=== PATIENT | female | born 1985 | race Caucasian/White ===

== ENCOUNTER 2016-09-05 14:43 | Observation (INO) | payer OTHER ==
[2016-09-05 15:54] LABS: Mean Corpuscular Hemoglobin 26.8 pg (27.0-35.0); Mean Corpuscular Volume 82.2 fL (81-100)
[2016-09-05] MEDS ORDERED: Lactated Ringer's 1,000 ML IV SCH (15:55)
[2016-09-05] MEDS ORDERED: NIFEdipine 10 mg Capsule PO ONE (17:45)
--- NOTE | 2016-09-05 18:13 | PCM.HPOB ---
Subjective Date of Service: Sep 05, 2016 Referring Provider: Admitting Physician: Sal Huffman MD Primary Care Physician: Rudolph Levy DO Attending Physician: Sal Huffman MD Chief Complaint Here for NST History of Present History of Present Illness 31Y/O at 34w6d ALEKS 10/11/2016 complicated with: 1. Twins gestation, di/di. 2. Gestational HTN. 3. Gestational DM on Glyburide. 4. Obesity, BMI48 5. Desires Sterilization consent signed 07/17/2016. 6. Transfer of care to [facility] from [place] at 24 weeks. Patient care is being co-managed between [facility] at [facility] with plan for delivery at the [facility]. NST twice weekly started at 32weeks. Last NST at [place] 3 days ago. Patient presented today for scheduled NST. Heart tones reactive but maternal BP as high as 175 /99 repeat BP 156/84. Except for localized "sinus headache" X2 days pain localized over cheeks, pt denies headache, change in vision, N/V or epigastric pain. Lower extremities edema X2 Patient was started on labetalol but self discontinued after one dose secondary to feeling agitated, patient took labetalol along with glyburide dose, and denies that she had skipped any meal that night or possible hypoglycemia as reason for the agitation. Past Medical History Obstetrical History: G1 2013 SAB at 4 weeks. G2 2013 SAB at 7 weeks. G3 2013 at 38 weeks 0 days, 6lb7oz., IOL for gestational HTN. G4 2015 SAB at 6 weeks. Gynecologic History: Menarche at age 10. LMP 12/28/15. Medical History: Denies Hx of HTN before or in between . Surgical History: ACL repair Right ankle surgery X3 Hx Tobacco Use: No Hx Alcohol Use: No Hx Substance Use: No Past Family History Family History HTN: MGM and Mother. Allergy Coded Allergies: codeine (Verified Adverse Reaction, Mild, hives and skin rash, 09/05/16) Uncoded Allergies: Acetaminophen-rash (Adverse Reaction, Intermediate, rash, 09/05/16) Hydrocodone Bitartrate (Adverse Reaction, Mild, Rash, 09/05/16) Labetolol (Adverse Reaction, Mild, body shakes, 09/05/16) Exam Vital Signs BP as high as 175/99 last BP 165/80 . BP from the right arm 130's/75's. HR 90 RR 16 T 36.8 Exam Both Twin A and B 140 moderate variability , positive accelerations and no decelerations. Interrupted strip. Constitutional: Well-developed, Well-nourished, Obese HEENT: Atraumatic, PERRLA Lungs: Clear to Auscultation Heart: Regular Rate/Rhythm, Normal S1, Normal S2 Abdomen: Gravid Extremities: Pulses Palpable x4, Edema (+1 B/L ) Neurological/Psychiatric: Alert, Oriented X3, Cooperative Neuro: Reflexes 2+ Labs/Diagnostics Lab/Diagnostic Information Laboratory Tests 72 Hours Test 09/05/16 15:29 09/05/16 15:40 Urine Random Creatinine 31mg/dL (16-392) Urine Random Total Protein 4mg/dL (0-15) Urine Protein/Creatinine Ratio 0.13 White Blood Count 10.2th/mm3 (3.8-10.1) Red Blood Count 4.11mil/mm3 (3.90-5.20) Hemoglobin 11.0g/dL (12.0-15.6) Hematocrit 33.8% (35.0-46.0) Mean Corpuscular Volume 82.2fL (81-100) Mean Corpuscular Hemoglobin 26.8pg (27.0-35.0) Mean Corpuscular Hemoglobin Concent 32.5% (32.0-37.0) Red Cell Distribution Width 14.1% (12.3-15.4) Platelet Count 225bil/L (150-400) Hematology Comments Blood Urea Nitrogen 8mg/dL (6-20) Creatinine 0.49mg/dL (0.57-1.00) Uric Acid 4.5mg/dL (2.6-7.2) Aspartate Amino Transf (AST/SGOT) 18U/L (0-50) Alanine Aminotransferase (ALT/SGPT) 11U/L (0-32) Maternal Blood Type: O (positive ) Additional Information Rubella immune RPR NR Hep BAg Negative HIV negative TSH 1.2 (01/17/16) Hgb A1c 5.4%(01/17/16) 1 hour DM screen 138 (06/18/16) ? OB Intrapartum Assessment/Plan Assessment 31Y/O at 34w6d ALEKS 10/11/2016 1. Di/di Twins gestation, planing delivery at [facility]. 2. Worsening Gestational HTN, labs WNL. asymptomatic beside Edema, facial headache and Lower back pain. 3. Gestational DM on Glyburide. 4. Obesity, BMI48 5. Desires Sterilization consent signed 07/17/2016. 6. Transfer of care to [facility] from [place] at 24 weeks. Pain Management: Patient was discussed with by , Transfer of care to [facility] was accepted by . Patient received one dose procardia XL 30 mg. 975 mg Tylenol for back pain. Sofia Valerio MD Sep 05, 2016 18:13
--- NOTE | 2016-09-18 12:11 | PCM.DC.OB ---
Obstetrical Discharge Summary Date of Service Sep 18, 2016 Date of hospital admission Sep 05, 2016 at 15:20 Date of Discharge: Sep 05, 2016 Providers Admitting Physician: Sal Huffman MD Primary Care Physician: Rudolph Levy DO Attending Physician: Sal Huffman MD Diagnosis at Time of Discharge Discharge Diagnosis: 1. Di/di Twins gestation, planing delivery at [facility]. 2. Gestational HTN, labs WNL. asymptomatic beside Edema, facial headache and Lower back pain. 3. Gestational DM on Glyburide. Discharge Condition: Guarded. Disposition: Transfer of care to [facility] Problems: Brief History and Physical: 31Y/O at 34w6d ALEKS 10/11/2016 complicated with: 1. Twins gestation, di/di. 2. Worsening Gestational HTN, labs WNL. asymptomatic beside Edema, facial headache and Lower back pain. 3. Gestational DM on Glyburide. 4. Obesity, BMI48 5. Desires Sterilization consent signed 07/17/2016. 6. Transfer of care to [facility] from [place] at 24 weeks. Patient care is being co-managed between [facility] at [facility] with plan for delivery at the [facility]. NST twice weekly started at 32weeks. Last NST at [place] 3 days ago. Patient presented today for scheduled NST. Heart tones reactive but maternal BP as high as 175 /99 repeat BP 156/84. Except for localized "sinus headache" X2 days pain localized over cheeks, pt denies headache, change in vision, N/V or epigastric pain. Lower extremities edema X2 Patient was started on labetalol but self discontinued after one dose secondary to feeling agitated, patient took labetalol along with glyburide dose, and denies that she had skipped any meal that night or possible hypoglycemia as reason for the agitation. Patient was discussed with by , Transfer of care to [facility] was accepted by . Patient received one dose procardia XL 30 mg. 975 mg Tylenol for back pain. Past Medical History Obstetrical History: G1 2013 SAB at 4 weeks. G2 2013 SAB at 7 weeks. G3 2013 at 38 weeks 0 days, 6lb7oz., IOL for gestational HTN. G4 2015 SAB at 6 weeks. Gynecologic History: Menarche at age 10. LMP 7/15/16. Medical History: Denies Hx of HTN before or in between . Surgical History: ACL repair Right ankle surgery X3 Hx Tobacco Use: No Hx Alcohol Use: No Hx Substance Use: No Past Family History Family History HTN: MGM and Mother. Allergy Coded Allergies: codeine (Verified Adverse Reaction, Mild, hives and skin rash, 09/05/16) Uncoded Allergies: Acetaminophen-rash (Adverse Reaction, Intermediate, rash, 09/05/16) Hydrocodone Bitartrate (Adverse Reaction, Mild, Rash, 09/05/16) Labetolol (Adverse Reaction, Mild, body shakes, 09/05/16) OB Exam Exam Vital Signs BP as high as 175/99 last BP 165/80 . BP from the right arm 130's/75's. HR 90 RR 16 T 36.8 Exam Both Twin A and B 140 moderate variability , positive accelerations and no decelerations. Interrupted strip. Constitutional: Well-developed, Well-nourished, Obese HEENT: Atraumatic, PERRLA Lungs: Clear to Auscultation Heart: Regular Rate/Rhythm, Normal S1, Normal S2 Abdomen: Gravid Extremities: Pulses Palpable x4, Edema (+1 B/L ) Neurological/Psychiatric: Alert, Oriented X3, Cooperative Neuro: Reflexes 2+ Labs/Diagnostics Labs/Diagnostics Lab/Diagnostic Information Laboratory Tests 72 Hours Test 09/05/16 15:29 09/05/16 15:40 Urine Random Creatinine 31mg/dL (16-392) Urine Random Total Protein 4mg/dL (0-15) Urine Protein/Creatinine Ratio 0.13 White Blood Count 10.2th/mm3 (3.8-10.1) Red Blood Count 4.11mil/mm3 (3.90-5.20) Hemoglobin 11.0g/dL (12.0-15.6) Hematocrit 33.8% (35.0-46.0) Mean Corpuscular Volume 82.2fL (81-100) Mean Corpuscular Hemoglobin 26.8pg (27.0-35.0) Mean Corpuscular Hemoglobin Concent 32.5% (32.0-37.0) Red Cell Distribution Width 14.1% (12.3-15.4) Platelet Count 225bil/L (150-400) Hematology Comments Blood Urea Nitrogen 8mg/dL (6-20) Creatinine 0.49mg/dL (0.57-1.00) Uric Acid 4.5mg/dL (2.6-7.2) Aspartate Amino Transf (AST/SGOT) 18U/L (0-50) Alanine Aminotransferase (ALT/SGPT) 11U/L (0-32) Maternal Blood Type: O (positive ) Additional Information Rubella immune RPR NR Hep BAg Negative HIV negative TSH 1.2 (01/17/16) Hgb A1c 5.4%(01/17/16) 1 hour DM screen 138 (06/18/16) ? Sofia Valerio MD Sep 18, 2016 12:11
== END 2016-09-05 18:25 | disposition home or self-care (01) ==
LOC: FBCO 14:43 → FBC 15:20
PROVIDERS: ADMIT Obstetrics & Gynecology; ATTEND Obstetrics & Gynecology
DX: O13.3 Gestational [pregnancy-induced] hypertension without significant proteinuria, third trimester (principal); O24.415 Gestational diabetes mellitus in pregnancy, controlled by oral hypoglycemic drugs; O30.043 Twin pregnancy, dichorionic/diamniotic, third trimester; O99.213 Obesity complicating pregnancy, third trimester; Z79.84 Long term (current) use of oral hypoglycemic drugs; Z3A.34 34 weeks gestation of pregnancy; Z68.42 Body mass index [BMI] 45.0-49.9, adult
CPT/HCPCS: 36415; 59025; 82565; 82570; 84156; 84450; 84460; 84520; 84550; 85027; G0378